=== PATIENT | male | born 2000 | race Caucasian/White ===

== ENCOUNTER 2019-02-02 07:48 | Emergency (ER) | payer MEDICAID ==
[~2019-02-02] VITALS: Ht 180.3 cm; Wt 61.2 kg
[2019-02-02 07:48] VITALS: BP_SYST 119
--- NOTE | 2019-02-02 07:48 | NUR ---
BROUGHT IMMEDIATELY BACK TO BED #5 AND TRIAGED. REPORT GIVEN TO ANTHONY
--- NOTE | 2019-02-02 07:55 | NUR ---
ER Dr. Strickland at bedside examining patient.
--- NOTE | 2019-02-02 07:56 | NUR ---
Pt c/o right scrotal pain that started last night. Pt denies doing any strenuous activity or different activity. Pt states no dysuria. Scrotum tender to touch, no obvious deformities or discoloration noted. No other complaints or injuries per pt or noted.
--- NOTE | 2019-02-02 08:13 | NUR ---
Pt off unit to ultrasound
--- NOTE | 2019-02-02 08:32 | NUR ---
Pt return to unit from ultrasound. Pt tolerated well.
[2019-02-02 08:52] LABS: BILIRUBIN,URINE NEGATIVE (NEGATIVE); BLOOD, URINE NEGATIVE (NEGATIVE); CLARITY/URINE CLEAR (CLEAR); COLOR,URINE YELLOW (YELLOW); GLUCOSE,URINE NEGATIVE (NEGATIVE); KETONES,URINE TRACE (NEGATIVE); LEUKOCYTE ESTERASE ,URINE NEGATIVE (NEGATIVE); NITRITE, URINE NEGATIVE (NEGATIVE); PH,URINE 5.5 (5.0-8.0); PROTEIN URINE TRACE (NEGATIVE); UROBILINOGEN,URINE 0.2 (0.2-1.0)
[2019-02-02 08:59] LABS: BACTERIA,URINE RARE /HPF (None Seen); RBC,URINE 0-3 /HPF (0-3); WBC,URINE 0-3 /HPF (0-3)
--- NOTE | 2019-02-02 09:14 | NUR ---
Pt states pain level at 3/10. No distress noted at this time.
[2019-02-02 09:55] VITALS: BP_SYST 106
--- NOTE | 2019-02-02 09:55 | NUR ---
Patient given written and verbal discharge instructions and verbalizes understanding. ER MD discussed with patient the results and treatment provided. Patient in stable condition. ID arm band removed. Rx of NAPROSYN given. Patient educated on pain management and to follow up with PMD. Pain Scale 0/10. NO OBJECTIVE S/SX OF PAIN OBSERVED. Opportunity for questions provided and answered. Medication side effect fact sheet provided. PATIENT IN GOOD CONDITION AND IN NO ACUTE DISTRESS. PATIENT NOTED WITH A STEADY GAIT.
== END 2019-02-02 09:55 | disposition home or self-care (01) ==
LOC: SED 07:48
DX: N43.3 Hydrocele, unspecified (principal)
CPT/HCPCS: 76870-TC; 81000-TC; 99284

== ENCOUNTER 2019-05-02 20:39 | Emergency (ER) | payer MEDICAID ==
[~2019-05-02] VITALS: Ht 177.8 cm; Wt 63.5 kg
[2019-05-02 20:48] VITALS: BP_SYST 135
[2019-05-02 23:26] VITALS: BP_SYST 135
== END 2019-05-02 23:26 | disposition home or self-care (01) ==
LOC: SED 20:39
DX: T16.1XXA Foreign body in right ear, initial encounter (principal); X58.XXXA Exposure to other specified factors, initial encounter; Y93.89 Activity, other specified; Y92.89 Other specified places as the place of occurrence of the external cause; Y99.8 Other external cause status
CPT/HCPCS: 99284

== ENCOUNTER 2019-05-14 14:16 | Emergency (ER) | payer MEDICAID ==
[~2019-05-14] VITALS: Ht 177.8 cm; Wt 63.5 kg
[2019-05-14 14:20] VITALS: BP_SYST 129
[2019-05-14 15:20] VITALS: BP_SYST 129
== END 2019-05-14 15:20 | disposition home or self-care (01) ==
LOC: SED 14:16
DX: M94.0 Chondrocostal junction syndrome [Tietze] (principal); R03.0 Elevated blood-pressure reading, without diagnosis of hypertension
CPT/HCPCS: 71045; 93005; 99283

== ENCOUNTER 2019-06-20 22:14 | Emergency (ER) | payer MEDICAID ==
[~2019-06-20] VITALS: Ht 177.8 cm; Wt 63.5 kg
[2019-06-20 22:23] VITALS: BP_SYST 116
--- NOTE | 2019-06-20 22:30 | NUR ---
Patient to ER bed 8 to gown for evaluation. Side rails up. Report given to Phil BROWN.
--- NOTE | 2019-06-20 22:33 | NUR ---
pt states abdominal pain began at approx 8am today. peaked at 9am with 10/10 abd pain, radiating to left chest. Pt denies sob, n/v, dizziness, blurred vision, pt states pain relief upon sitting or resting. pt seated. pt states cp ceased at approx 2210. pt resting in er bed comfortably. will continue to monitor. no additional medical complaint at this time.
--- NOTE | 2019-06-20 22:37 | NUR ---
ER at bedside examining patient.
--- NOTE | 2019-06-20 22:39 | NUR ---
Hedy hayes in ED - 06/20/19 at 2239 by [email or web address] ASTRID Drake at bedside examining patient.
[2019-06-20] MEDS ORDERED: NACL 0.9% 1,000 ML IV ONE (22:40)
[2019-06-20] MEDS ORDERED: ONDANSETRON HCL 4 MG/2 ML VIAL IVP ONE (22:45)
[2019-06-20] MEDS ORDERED: KETOROLAC TROMETHAMINE 30 MG VIAL IVP ONE (22:45)
--- NOTE | 2019-06-20 22:46 | NUR ---
# 18 gauge angiocath placed to rac. Use of asceptic technique. Opsite placed over site. Blood return noted. Blood for lab drawn from site. Blood cultures collected. Flushed with 10 cc of normal saline. No evidence of infiltration noted. Patient tolerated well.
[2019-06-20 23:11] LABS: BASOPHILS % (AUTO) 0.4 % (0.0-2.0); EOSINOPHILS # (AUTO) 0.5 K/uL (0.0-0.4); EOSINOPHILS % (AUTO) 9.5 % (0.0-4.0); HEMATOCRIT 41.5 % (36-54); HEMOGLOBIN 14.1 g/dL (14.0-18.0); LYMPHOCYTES # (AUTO) 1.7 K/uL (1.0-5.5); LYMPHOCYTES % (AUTO) 31.2 % (20.5-51.5); MEAN CORPUSCULAR HEMOGLOBIN 30 pg (27-31); MEAN CORPUSCULAR HGB CONC 34 % (32-36); MEAN CORPUSCULAR VOLUME 87 fL (79.0-98.0); MONOCYTES # (AUTO) 0.4 K/uL (0.0-1.0); MONOCYTES % (AUTO) 6.7 % (1.7-9.3); NEUTROPHILS # (AUTO) 2.9 K/uL (1.8-7.7); NEUTROPHILS % (AUTO) 52.2 % (40.0-70.0); PLATELET COUNT (AUTO) 163 K/uL (130-430); RED BLOOD CELL COUNT(AUTO) 4.75 MIL/uL (4.2-6.2); WHITE BLOOD COUNT (AUTO) 5.5 K/uL (4.5-11.0)
[2019-06-20 23:23] LABS: CALCIUM 8.6 mg/dL (8.4-11.0); CREATININE 0.85 mg/dL (0.55-1.30); POTASSIUM 3.3 mmol/L (3.5-5.1)
[2019-06-20 23:30] LABS: TOTAL BILIRUBIN 1.2 mg/dL (0.0-1.0)
[2019-06-20 23:31] LABS: ALBUMIN 4.1 g/dL (3.4-4.8)
[2019-06-21 00:50] VITALS: BP_SYST 121
--- NOTE | 2019-06-21 00:50 | NUR ---
Patient given written and verbal discharge instructions and verbalizes understanding. ER MD discussed with patient the results and treatment provided. Patient in stable condition. ID arm band removed. IV catheter removed intact and dressing applied, no active bleeding. Rx of Motrin, Zofran, Dicyclomine Hydrochloride given. Patient educated on pain management and to follow up with PMD. Pain Scale 0. Opportunity for questions provided and answered. Medication side effect fact sheet provided.
== END 2019-06-21 00:50 | disposition home or self-care (01) ==
LOC: SED 22:14
DX: K56.7 Ileus, unspecified (principal)
CPT/HCPCS: 36415; 74176; 80053; 85025; 87040; 96374; 96375; 99284; J1885; J2405; J7030